=== PATIENT | female | born 1955 | race Caucasian/White ===

== ENCOUNTER → 2017-11-05 07:50 | Outpatient (CLI) | payer OTHER, SELFPAY ==
--- NOTE | 2017-11-05 07:55 | CT_ITS ---
STUDY: CT CHEST WITH CONTRAST REASON FOR EXAM: Female, 62 years old. Follow-up for lung nodule. RADIATION DOSAGE (If Supplied By Facility): CTDIvol = ( 16.47 ) mGy, DLP = ( 733.79 ) mGycm TECHNIQUE: Transaxial imaging was performed following intravenous administration of 100mL ml of Isovue 300 contrast material. Multiplanar coronal and sagittal images were reformatted. Individualized dose optimization techniques were used for this CT. COMPARISON: Comparison is made with prior study dated December 16, 2013. FINDINGS: There is a 1.4 cm solid nodule in the inferior medial aspect of the left lobe of the thyroid. Stable 1.2 cm well-defined solid nodule in the peripheral posterior aspect of the left upper lobe. No new nodular density is seen. Stable mild degree of increased linear markings in the medial aspect of the right middle lobe suggestive of scarring. There is no demonstrated pleural abnormality. There are calcifications of the coronary arteries. There are multiple small lymph nodes within the mediastinum, which are normal in size and morphology most compatible with reactive lymph hyperplasia. Stable calcification of the subcarinal lymph nodes. Normal hilar regions. Normal enhanced pulmonary arteries. Normal aorta arch and descending thoracic aorta. There are mild degenerative changes of the thoracic spine. Small hiatal hernia. 1.9 Shivam well-defined hypodensity in the left adrenal gland suggestive of a small adrenal adenoma. CT/Chest WITH Contrast IMPRESSION: Stable appearance of the nodular density in the posterior aspect of the left upper lobe. Small left adrenal adenoma. Electronically Signed: Lee Gomez MD at 13:45 EST Tel [phone], Service support ,
[2017-11-05 08:16] LABS: CREATININE FINGERSTICK 0.9 mg/dL (0.55-1.02); EGFR FINGERSTICK > 60.0000 mL/min (>60)
== END ==
PROVIDERS: Family Provider Internal Medicine; PCP Internal Medicine; Visit Provider Internal Medicine
DX: R91.1 Solitary pulmonary nodule (principal)
CPT/HCPCS: 71260; Q9967

== ENCOUNTER → 2017-11-26 10:02 | Outpatient (CLI) | payer OTHER, SELFPAY ==
--- NOTE | 2017-11-26 10:05 | US_ITS ---
STUDY: THYROID ULTRASOUND REASON FOR EXAM: Female, 62 years old. Thyroid nodule on CT TECHNIQUE: Transverse and longitudinal ultrasound evaluation of the thyroid was performed with real-time and static stephenson-scale imaging. COMPARISON: Chest CT dated November 05, 2017 FINDINGS: RIGHT LOBE: The right lobe of the thyroid gland measures 4.8 x 1.9 x 1.6 cm. There is a homogeneous echotexture. There is an anechoic mass with a small calcification in the upper pole measuring 5.2 x 4.3 x 5.1 mm. There is another anechoic mass with a small calcification in the lower pole measuring 7.7 x 4.9 x 4.7 mm. LEFT LOBE: The left lobe of the thyroid gland measures 4.3 x 1.5 x 1.7 cm. There is a homogeneous echotexture. There is a nearly anechoic mass in the lower pole measuring 5.0 x 3.9 x 5.2 mm. There is a hypoechoic mass in the midpole posteriorly measuring 6.2 x 6.8 x 6.3 mm. ISTHMUS: The isthmus measures 2.0 mm. The regional lymph nodes are unremarkable. US/Thyroid IMPRESSION: There are a few small nodules in the thyroid without suspicious features. Most of these are cystic. A hypoechoic mass in the midpole of the left lobe measures almost 7 mm in size. A six month follow-up thyroid ultrasound can be obtained to document stability. Electronically Signed: Ana Paula Bernabe MD at 17:39 EST Tel Direct: [phone], Service support ,
== END ==
PROVIDERS: Family Provider Internal Medicine; PCP Internal Medicine; Visit Provider Internal Medicine
DX: E04.2 Nontoxic multinodular goiter (principal)
CPT/HCPCS: 76536

== ENCOUNTER 2018-01-01 08:32 | Emergency (ER) | payer OTHER, SELFPAY ==
[2018-01-01 08:32] VITALS: BP 153/99; PULSE 60; RESP 16; TEMP 36.1; O2SAT 97; BMI 36.9
--- NOTE | 2018-01-01 09:01 | ED.VISSUMM ---
- ER Visit Summary Date of Service: 01/01/18 Chief Complaint: Bleeding History of Present Illness: The patient is a 62 F rectal bleeding that began last night. It has been intermittent. She states it was a small amount of blood at times. Is bright red. She denies any black stool. She is on no blood thinners other than low-dose aspirin. She had this 1 other time without diagnosis. She had a colonoscopy 2-3 years ago she states was unremarkable. She denies any hematemesis. She denies feeling lightheaded or dizzy. She states that the rectal bleeding was a small amount that was a shot glass or less. Physical Examination: Well-appearing older female. Vital signs are stable afebrile. Pulse ox 97% on room air no signs of hypoxia. Coming by her . HEENT exam unremarkable. Neck nontender. Lungs clear to auscultation bilaterally. Heart regular rhythm rate about 60 no murmur. Chest wall nontender. Abdomen soft nontender. Normal bowel sounds no peritoneal signs. Moving all 4 extremities. Neurovascular intact. No edema. Calves nontender. Back exam normal. Neurologically she is awake alert with no focal motor deficits. Test Results: Hemoglobin 14 hematocrit 43 which is her baseline. BMP normal. Normal BUN 22 creatinine 1 and gap of 7. Emergency Department Course and Treatment: Orthostatic vital signs are pending. Patient's repeat exam she is doing well. She has had no further bleeding while in the ER. I did perform a rectal exam. Outside there is no external hemorrhoids. There is no gross blood. She had normal rectal tone. No mass brown loose stool. No melena. Nontender. Treatment Plan: She will be discharged home she is seen Dr. Gonzalez in the past she can follow-up with him for stable rectal bleeding of uncertain etiology. She knows return if heavier bleeding or feeling worse. Disposition: Discharge Impression: Acute rectal bleeding of uncertain etiology This note was generated with [employer] dictation software. It may contain incorrect words, spelling, and punctuation that were not noted in review of the chart prior to signing ED Disposition - Plan for ED Patient: Chief Complaint: GI Bleed Referrals: Arabella Godoy DO [Primary Care Provider] -
[2018-01-01 09:36] LABS: Hematocrit 43.1 % (37-47); Hemoglobin 14.3 g/dl (12.0-15.0); Mean Corp Hgb Conc 33.2 g/gl (32-36); Mean Corpuscular Hgb 30.2 pg (27.0-32.0); Mean Corpuscular Volume 90.9 fL (81-99); Mean Platelet Vol. 9.8 fl (6.2-12.0); Platelet Count 272 K/mm3 (150-450); RBC Distribution Width CV 13.8 % (11.6-14.6); RBC Distribution Width SD 45.6 fl (35.1-43.9); Red Blood Count 4.74 M/mm3 (4.2-5.4); White Blood Count 7.3 K/mm3 (4.4-11.0)
[2018-01-01 09:39] LABS: Scan Indicated on CBC? Y/N NO
[2018-01-01 09:57] LABS: Anion Gap 7 (5-15); BUN 22 mg/dL (7-18); Calcium,Total 9.5 mg/dL (8.5-10.1); Chloride 103 mmol/L (98-107); EST Glomerular Filtration Rate 59 mL/min (>60); Est Glom Filt Rate - Afr Amer 72 mL/min (>60); Estimated Creatinine Clearance 53.21 ml/min; Glucose 101 mg/dL (74-106); Potassium 3.9 mmol/L (3.5-5.1); Sodium Level 140 mmol/L (136-145)
--- NOTE | 2018-01-01 10:59 | ED.DEP ---
ED Disposition - Plan for ED Patient: Disposition: Home or Assisted Living Chief Complaint: GI Bleed Instructions: ED Hematochezia Stable Referrals: Arabella Godoy DO [Primary Care Provider] - As Needed Jeramy Gonzalez MD [STAFF PHYSICIAN] - As soon as possible Additional Instructions: Follow-up with Dr. Jeramy Gonzalez for further evaluation for rectal bleeding. Return to ER feeling worse or a lot heavier bleeding
[2018-01-01 11:05] VITALS: BP 148/72; BP 152/70; BP 153/70; BP 154/76; PULSE 70; PULSE 72; PULSE 75; PULSE 76; RESP 14; O2SAT 98; O2SAT 99
== END 2018-01-01 11:08 | disposition home or self-care (01) ==
PROVIDERS: Emergency Provider Emergency Medicine; Family Provider Internal Medicine; PCP Internal Medicine
DX: K62.5 Hemorrhage of anus and rectum (principal); I10 Essential (primary) hypertension; E78.00 Pure hypercholesterolemia, unspecified; Z79.82 Long term (current) use of aspirin; Z79.899 Other long term (current) drug therapy
CPT/HCPCS: 80048; 85027; 86850; 86900; 99285; A4216

== ENCOUNTER → 2018-03-24 11:59 | Outpatient (CLI) | payer OTHER, SELFPAY ==
--- NOTE | 2018-03-24 12:01 | RAD_ITS ---
STUDY: X-RAY CHEST REASON FOR EXAM: Female, 62 years old. Cough TECHNIQUE: Frontal and lateral views of the chest COMPARISON: CT dated 11/05/2017 FINDINGS: There is airspace opacity in the right lower lobe which is consistent with an infiltrate. The lungs are otherwise clear. There are no pleural effusions. There is no pneumothorax. The heart is normal in size. The visualized osseous structures are within normal limits. RAD/Chest PA and Lateral IMPRESSION: Right lower lobe infiltrate. Electronically Signed: Austin Avila, at 18:03 EDT Tel , Service support ,
== END ==
PROVIDERS: Family Provider Internal Medicine; PCP Internal Medicine; Visit Provider Nurse Practitioner Gerontology
DX: R91.8 Other nonspecific abnormal finding of lung field (principal); R05 Cough
CPT/HCPCS: 71046

== ENCOUNTER → 2018-04-25 10:12 | Outpatient (CLI) | payer MEDICARE, SELFPAY ==
--- NOTE | 2018-04-25 10:15 | RAD_ITS ---
STUDY: X-RAY - RIGHT KNEE REASON FOR EXAM: Female, 63 years old. Pain, decreased range of motion TECHNIQUE: 4 view(s) of the knee. COMPARISON: None. FINDINGS: Normal visualized distal femur. Normal visualized proximal tibia and fibula. Normal proximal tibiofibular articulation. Normal medial femorotibial compartment. Normal lateral femorotibial compartment. Normal patellofemoral articulation. The soft tissue structures are unremarkable. RAD/Knee 4 or More Views IMPRESSION: Normal x-ray examination of the knee. Electronically Signed: Karthik Mares MD at 11:36 EDT , Service support ,
== END ==
PROVIDERS: Family Provider Internal Medicine; PCP Internal Medicine; Visit Provider Internal Medicine
DX: M25.561 Pain in right knee (principal)
CPT/HCPCS: 73564

== ENCOUNTER → 2018-05-06 08:05 | Outpatient (CLI) | payer MEDICARE, SELFPAY ==
--- NOTE | 2018-05-06 08:09 | CT_ITS ---
STUDY: CT ABDOMEN WITH AND WITHOUT CONTRAST REASON FOR EXAM: Female, 63 years old. Follow-up adrenal nodule. RADIATION DOSAGE (If Supplied By Facility): CTDIvol = ( 20.27 ) mGy, DLP = ( 2087.88 ) mGycm TECHNIQUE: Transaxial images were obtained pre and post I.V. administration of 100 ml of Isovue 300, and with oral contrast. Sagittal and coronal images were reconstructed. Individualized dose optimization techniques were used for this CT. COMPARISON: 04/29/2017. FINDINGS: The visualized lung bases are unremarkable. The visualized portions of the heart are within normal limits. Normal liver. Normal gallbladder and extrahepatic biliary system. There are multiple benign calcified granulomata of the spleen. Normal pancreas. Right adrenal gland is normal. Left adrenal gland has a stable isodense 1.6 cm nodule. It has remained stable for over a year now, and probably does not need further evaluation. Normal right kidney. Small cyst in the lower pole of the right kidney. Normal left kidney. Normal visualized stomach. Normal small intestine. Normal colon. There is non-visualization of the appendix. Normal abdominal aorta. Normal inferior vena cava. Normal retroperitoneum. Normal abdominal wall. There are diffuse degenerative changes of the visualized lumbar spine. CT/Abdomen W/WO IV Contrast IMPRESSION: No definite significant abnormalities. Stable probably nonaggressive 1.6 cm nodule of the left adrenal gland. Electronically Signed: Alphonso Stoner MD at 10:20 EDT , Service support ,
--- NOTE | 2018-05-06 08:09 | US_ITS ---
STUDY: THYROID ULTRASOUND REASON FOR EXAM: Female, 63 years old. Follow-up nodules TECHNIQUE: Ultrasound evaluation of the thyroid was performed with real-time and static stephenson-scale imaging. COMPARISON: 11/26/2017. FINDINGS: RIGHT LOBE: The right lobe of the thyroid gland measures 4.8 x 1.8 x 0.8 cm. There is a homogeneous echotexture. 2 small hypoechoic nodules measuring 4 mm and 7 mm, essentially stable LEFT LOBE: The left lobe of the thyroid gland measures 4.5 x 1.3 x 1.5 cm. There is a homogeneous echotexture. There is a 5 mm hypoechoic nodule. ISTHMUS: The isthmus measures 3 mm. . The regional lymph nodes are normal. US/Thyroid IMPRESSION: Essentially stable subcentimeter hypoechoic nodules. In general these do not need further evaluation. Electronically Signed: Alphonso Stoner MD at 11:30 EDT , Service support ,
[2018-05-06 08:21] LABS: CREATININE FINGERSTICK 0.9 mg/dL (0.55-1.02)
== END ==
PROVIDERS: Family Provider Internal Medicine; PCP Internal Medicine; Visit Provider Internal Medicine
DX: E04.1 Nontoxic single thyroid nodule (principal); E27.9 Disorder of adrenal gland, unspecified
CPT/HCPCS: 74170; 76536; Q9967

== ENCOUNTER 2018-11-14 09:03 | Emergency (ER) | payer MEDICARE, SELFPAY ==
[2018-11-14 09:05] VITALS: BP 159/82; PULSE 64; RESP 18; TEMP 36.4; O2SAT 98; BMI 37.9
--- NOTE | 2018-11-14 09:18 | RAD_ITS ---
STUDY: X-RAY - RIGHT KNEE REASON FOR EXAM: Posterior pain, knee injury last night. TECHNIQUE: 4 view(s) of the knee. COMPARISON: Radiographs 04/25/2018. FINDINGS: Normal visualized distal femur. Normal visualized proximal tibia and fibula. Normal proximal tibiofibular articulation. Normal medial femorotibial compartment. Normal lateral femorotibial compartment. Normal patellofemoral articulation. The soft tissue structures are unremarkable. RAD/Knee 4 or More Views IMPRESSION: Normal x-ray examination of the right knee. Electronically Signed: Domingo Alonso MD at 10:50 EST Tel , Service support ,
--- NOTE | 2018-11-14 10:48 | ED.VISSUMM ---
- ER Visit Summary Date of Service: 11/14/18 Chief Complaint: [Injury right knee] History of Present Illness: The patient is a 63 F [presents the emergency department with complaint of injury to the right knee that occurred last evening. Patient states that she was stepping out of a van when she felt a snap in her right knee. Patient did not actually fall. Patient complains of pain with walking but seems to be able to bear weight when she has her knee completely extended and is able to walk on it. Patient denies any weakness in the extremity. Patient denies recent travel or surgery otherwise.] Physical Examination: [HEENT-PERRLA, EOMI. Cranial nerves II through XII grossly intact. TMs clear. Mucous membranes moist. No adenopathy. Cardiovascular-regular rate and rhythm without murmur or ectopy Lungs-clear to auscultation, chest wall stable without crepitus or subcu emphysema Abdomen-normoactive bowel sounds, soft, nontender, no rebound or rigidity, no peritoneal signs. Extremities-intact ?4, normal range of motion, normal pulses. Right knee-patient has no effusion. There is no ecchymosis or bruising. She is neurovascular intact distally. Ligamentously stable. Patient does have pain with flexion of the knee.] Test Results: [X-rays of the right knee obtained showed no fractures and nothing acute.] Emergency Department Course and Treatment: [Patient was given a knee immobilizer and crutches.] Treatment Plan: [Patient will be referred to orthopedics on-call and will be given a knee immobilizer and crutches as well as a prescription for [place] for pain.] Disposition: [Discharged home in stable condition.] Impression: [Right knee sprain-possible internal derangement] This note was generated with [employer] dictation software. It may contain incorrect words, spelling, and punctuation that were not noted in review of the chart prior to signing ED Disposition - Plan for ED Patient: Referrals: Arabella Godoy DO [Primary Care Provider] -
--- NOTE | 2018-11-14 10:50 | ED.DEP ---
ED Disposition - Plan for ED Patient: Instructions: ED Meniscal Injury Knee Poss Prescriptions: Hydrocodone Bitart/Apap 5-325 [[place] 5MG-325MG] 1 tab PO Q4H PRN PRN 2 Days #10 tab PRN Reason: Pain Referrals: Arabella Godoy DO [Primary Care Provider] - Earnest Chambers DO [STAFF PHYSICIAN] - 3-5 Days
[2018-11-14 11:19] VITALS: PULSE 67; RESP 17; O2SAT 97
== END 2018-11-14 11:20 | disposition home or self-care (01) ==
PROVIDERS: Emergency Provider Emergency Medicine; Family Provider Internal Medicine; PCP Internal Medicine
DX: S83.91XA Sprain of unspecified site of right knee, initial encounter (principal); X58.XXXA Exposure to other specified factors, initial encounter; Y93.89 Activity, other specified; Y92.9 Unspecified place or not applicable; I10 Essential (primary) hypertension; I34.1 Nonrheumatic mitral (valve) prolapse; Z79.82 Long term (current) use of aspirin; Z79.899 Other long term (current) drug therapy
CPT/HCPCS: 73564; 99283

== ENCOUNTER → 2019-04-01 09:12 | Outpatient (CLI) | payer MEDICARE, SELFPAY ==
[2019-01-07 10:36] VITALS: BMI 37.9
--- NOTE | 2019-04-01 09:15 | BI_ITS ---
MAMMOGRAPHY - BILATERAL SCREENING REASON FOR EXAM: Female, 64 years old. Routine annual screening examination. PERTINENT HISTORY: Non-contributory. TECHNIQUE: Digital bilateral breast libra (3D mammographic acquisition) in the CC and MLO projections. 2-D mediolateral oblique (MLO) and craniocaudad (CC) views of both breasts were obtained. CAD: Full Field Digital Mammography with Computer Added Detection was performed. COMPARISON: Comparison is made with prior study dated July 11, 2016 and July 07, 2015. FINDINGS: Breast Composition: There are scattered areas of fibroglandular density. There are no dominant masses or suspicious calcifications. Stable small bilateral benign appearing axillary lymph nodes. No other significant abnormalities are identified. There has been no significant change since the prior study. BI/SCREEN MAMM (CAD) W/LIBRA BILAT IMPRESSION: Stable bilateral screening mammogram. Yearly follow-up mammogram recommended. (A) ASSESSMENT CATEGORY: BIRADS Category 2: Benign. A letter regarding these results will be sent to the patient by the facility within 30 days. Approximately 10% of breast cancers are not detected by mammography. A normal mammogram should not delay biopsy of a clinically suspicious abnormality. [id number] Electronically Signed: Lee Gomez, at 13:51 EDT , Service support ,
--- NOTE | 2019-04-01 09:25 | BD_ITS ---
STUDY: DUAL ENERGY X-RAY ABSORPTIOMETRY / DXA REASON FOR EXAM: Female, 63 years old. The patient is postmenopausal. Loss of height. TECHNIQUE: Bone Mineral Density (BMD) measurements of lumbar spine and bilateral hips were obtained. COMPARISON: Comparison is made with prior study dated July 11, 2016. FINDINGS: Lumbar Spine (L1-L4): g/cm2 (0.937) / T-score (-2.0) / Z-score (-0.4) Findings are suggestive of osteopenia with a moderate fracture risk. Left Femur Total: g/cm2 (0.890) / T-score (-0.9) / Z-score (0.3) Left Femoral Neck: g/cm2 (0.896) / T-score (-1.0) / Z-score (0.5) Right Femur Total: g/cm2 (0.835) / T-score (-1.4) / Z-score (-0.1) Right Femoral Neck: g/cm2 (0.893) / T-score (-1.0) / Z-score (0.5) The T-Scores on the most recent prior examination were: Lumbar Spine (L1-L4): There has been worsening of bone density since the previous examination. Left Femur Total: which represents a worsening of 1.5%. Right Femur Total: which represents a worsening of 1.1%. BD/Dexa Bone Density Study IMPRESSION: The patient is considered osteopenic as outlined below according to World Lucio Organization (WHO) criteria with a moderate fracture risk. There has been worsening of bone density since the previous examination. Reference Information: The T-score is the number of standard deviations above or below the standard which is normal for young adults at their peak bone mineral density. The World Health Organization (WHO) interprets the T-scores as follows: Above -1 Normal bone density Between -1 and -2.5 Osteopenia Equal to / or below -2.5 Osteoporosis As a practical clinical guideline, osteopenia may be graded as follows: Mild -1 through -1.5 Moderate -1.6 through -2.0 Severe -2.1 through -2.4 The Z-score is the number of standard deviations above or below age-matched controls. A Z-score of less than -1.5 would be considered abnormal. References: 1. NIH Osteoporosis and Related Bone Diseases http://www.osteo.org 2. International Society for Clinical Densitometry http://www.iscd.org 3. National Osteoporosis Foundation http://www.nof.org Electronically Signed: Lee Gomez, at 13:55 EDT , Service support ,
== END ==
PROVIDERS: Family Provider Internal Medicine; PCP Internal Medicine; Referring Provider Internal Medicine; Visit Provider Internal Medicine
DX: Z78.0 Asymptomatic menopausal state (principal); Z12.31 Encounter for screening mammogram for malignant neoplasm of breast
CPT/HCPCS: 77063; 77067; 77080

== ENCOUNTER → 2020-04-04 08:17 | Outpatient (CLI) | payer MEDICARE, SELFPAY ==
[2020-03-07 14:29] VITALS: BMI 38.2
--- NOTE | 2020-04-04 08:19 | BI_ITS ---
MAMMOGRAPHY - BILATERAL SCREENING REASON FOR EXAM: Female, 64 years old. Routine annual screening examination. PERTINENT HISTORY: Non-contributory. TECHNIQUE: Digital bilateral breast libra (3D mammographic acquisition) in the CC and MLO projections. 2-D mediolateral oblique (MLO) and craniocaudad (CC) views of both breasts were obtained. CAD: Full Field Digital Mammography with Computer Added Detection was performed. COMPARISON: Comparison is made with prior examination dated April 01, 2019 and July 11, 2016. FINDINGS: Breast Composition: There are scattered areas of fibroglandular density. There are no dominant masses or suspicious calcifications. Stable small benign-appearing bilateral axillary lymph nodes. No other significant abnormalities are identified. There has been no significant change since the prior study. BI/SCREEN MAMM (CAD) W/LIBRA BILAT IMPRESSION: Stable bilateral screening mammogram. Yearly follow-up mammogram recommended. (A) ASSESSMENT CATEGORY: BIRADS Category 2: Benign. A letter regarding these results will be sent to the patient by the facility within 30 days. Approximately 10% of breast cancers are not detected by mammography. A normal mammogram should not delay biopsy of a clinically suspicious abnormality. [id number] Electronically Signed: Lee Gomez, at 9:56 EDT , Service support ,
== END ==
PROVIDERS: PCP Internal Medicine; Referring Provider Internal Medicine; Visit Provider Internal Medicine
DX: Z12.31 Encounter for screening mammogram for malignant neoplasm of breast (principal)
CPT/HCPCS: 77063; 77067

== ENCOUNTER → 2021-05-04 12:58 | Outpatient (CLI) | payer MEDICARE, SELFPAY ==
[2021-03-24 10:24] VITALS: BMI 38.0
--- NOTE | 2021-05-04 13:01 | BI_ITS ---
MAMMOGRAPHY - BILATERAL SCREENING REASON FOR EXAM: Female, 66 years old. Routine annual screening examination. PERTINENT HISTORY: Screening TECHNIQUE: Digital bilateral breast libra (3D mammographic acquisition) in the CC and MLO projections. 2-D mediolateral oblique (MLO) and craniocaudad (CC) views of both breasts were obtained. CAD: Full Field Digital Mammography with Computer Added Detection was performed. COMPARISON: 04/04/2020 FINDINGS: Breast Composition: Scattered There are no dominant masses or suspicious calcifications. No other significant abnormalities are identified. BI/SCRN MAMM (CAD)W/LIBRA BILAT IMPRESSION: Stable bilateral screening mammogram. Yearly follow-up mammogram recommended. (A) ASSESSMENT CATEGORY: BIRADS Category 1: Negative. A letter regarding these results will be sent to the patient by the facility within 30 days. Approximately 10% of breast cancers are not detected by mammography. A normal mammogram should not delay biopsy of a clinically suspicious abnormality. [id number] Electronically Signed: Devin Montiel DO at 12:34 EDT Tel , Service support ,
--- NOTE | 2021-05-04 13:39 | BD_ITS ---
STUDY: DUAL ENERGY X-RAY ABSORPTIOMETRY / DXA REASON FOR EXAM: Female, 66 years old. [id number]. The patient is postmenopausal. TECHNIQUE: Bone Mineral Density (BMD) measurements of lumbar spine and bilateral hips were obtained. COMPARISON: Comparison is made with prior examination dated 04/01/2019. FINDINGS: Lumbar Spine (L1-L4): g/cm2 (0.800) / T-score (-2.2) / Z-score (-0.3) Findings are suggestive of osteopenia with a high fracture risk. Left Femur Total: g/cm2 (0.848) / T-score (-0.8) / Z-score (0.6) Left Femoral Neck: g/cm2 (0.759) / T-score (-0.8) / Z-score (0.9) Right Femur Total: g/cm2 (0.807) / T-score (-1.1) / Z-score (0.3) Right Femoral Neck: g/cm2 (0.717) / T-score (-1.2) / Z-score (0.5) The T-Scores on the most recent prior examination were: Lumbar Spine (L1-L4): There has been worsening of bone density since the previous examination. Left Femur Total: which represents an improvement of 2.5%. Right Femur Total: which represents an improvement of 4.3%. BD/Dexa Bone Density Study IMPRESSION: The patient is considered osteopenic as outlined below according to World [employer] Organization (WHO) criteria with a low fracture risk. There has been improvement of bone density since the previous examination. Reference Information: The T-score is the number of standard deviations above or below the standard which is normal for young adults at their peak bone mineral density. The World Health Organization (WHO) interprets the T-scores as follows: Above -1 Normal bone density Between -1 and -2.5 Osteopenia Equal to / or below -2.5 Osteoporosis As a practical clinical guideline, osteopenia may be graded as follows: Mild -1 through -1.5 Moderate -1.6 through -2.0 Severe -2.1 through -2.4 The Z-score is the number of standard deviations above or below age-matched controls. A Z-score of less than -1.5 would be considered abnormal. References: 1. NIH Osteoporosis and Related Bone Diseases www osteo.org 2. International Society for Clinical Densitometry www iscd.org 3. National Osteoporosis Foundation www nof.org Electronically Signed: Lee Gomez MD at 9:07 EDT , Service support ,
== END ==
PROVIDERS: PCP Internal Medicine; Visit Provider Internal Medicine
DX: Z78.0 Asymptomatic menopausal state (principal); Z12.31 Encounter for screening mammogram for malignant neoplasm of breast
CPT/HCPCS: 77063; 77067; 77080

== ENCOUNTER 2021-12-14 12:08 | Outpatient (CLI) | payer MEDICARE, SELFPAY ==
[2021-12-14 12:45] LABS: Absolute Lymphocyte Count 2.21 X10^3/uL (0.83-4.51); Absolute Neutrophil Count 3.7 X10^3/uL (2.0-7.7); Basophil# 0.03 X10^3/uL; Basophil% 0.5 % (0-1); Eosinophils% 1.5 % (0-5); Hematocrit 43.6 % (37-47); Hemoglobin 14.3 g/dL (12.0-15.0); Lymphocyte # 2.21 X10^3/ul (0.83-4.51); Lymphocyte % 33.7 % (19-41); Mean Corp Hgb Conc 32.8 g/dL (32-36); Mean Corpuscular Hgb 29.2 pg (27.0-32.0); Mean Platelet Vol. 10.8 fl (6.2-12.0); Monocyte# 0.51 X10^3/uL; Monocyte% 7.8 % (0-10); NRBC Flagged by Analyzer 0 % (0-5); Neutrophil % 56.3 % (47-70); Platelet Count 276 K/mm3 (150-450); RBC Distribution Width CV 13.8 % (11.6-14.6); RBC Distribution Width SD 45.1 fl (35.1-43.9); White Blood Count 6.6 K/mm3 (4.4-11.0)
[2021-12-14 13:13] LABS: ALB/GLOB Ratio 1.1 RATIO (0.9-2.4); AST(SGOT) 18 U/L (15-37); Alanine Aminotransfer ALT/SGPT 31 U/L (13-56); Albumin, Serum 3.9 g/dL (3.2-5.0); Alkaline Phosphatase 111 U/L (45-117); Anion Gap 2 (5-15); BUN 19 mg/dL (7-18); BUN/Creat Ratio 21.6 RATIO (10-20); Calcium,Total 9.5 mg/dL (8.5-10.1); Chloride 104 mmol/L (98-107); Creatinine, Serum 0.88 mg/dL (0.55-1.02); EST Glomerular Filtration Rate 68 mL/min (>60); Est Glom Filt Rate - Afr Amer 82 mL/min (>60); Globulin 3.4 g/dL (2.2-4.2); Glucose 99 mg/dL (74-106); Potassium 3.7 mmol/L (3.5-5.1); Protein, Total 7.3 g/dL (6.4-8.2); Sodium Level 139 mmol/L (136-145); Troponin-I HS 64 pg/mL (3.0-54.0)
== END 2021-12-14 23:59 | disposition home or self-care (01) ==
PROVIDERS: PCP Internal Medicine; Visit Provider Internal Medicine
DX: R07.89 Other chest pain (principal)
CPT/HCPCS: 80053; 84484; 85025

== ENCOUNTER 2021-12-14 14:28 | Observation (INO) | payer MEDICARE, SELFPAY ==
[2021-12-14 14:28] VITALS: BP 175/89; PULSE 73; RESP 16; TEMP 36.8; O2SAT 97; BMI 38.4
--- NOTE | 2021-12-14 14:38 | RAD_ITS ---
STUDY: X-RAY CHEST REASON FOR EXAM: Female, 66 years old. chest pain TECHNIQUE: AP COMPARISON: 03/24/2018 FINDINGS: EKG leads project over the chest. The lungs are clear and expanded. There is no demonstrated pleural abnormality. Normal size heart. Normal mediastinum and mary. Normal visualized pulmonary arteries. Normal visualized aortic arch and descending thoracic aorta. Normal visualized thoracic spine. Normal visualized ribs, clavicles, and shoulders. There is no demonstrated abnormality of the visualized soft tissue structures of the upper abdomen. RAD/Chest 1 View (Portable) IMPRESSION: Nonacute portable x-ray examination of the chest. Electronically Signed: Spencer Foster MD ([place]) at 15:26 EDT ,
--- NOTE | 2021-12-14 14:38 | EKG12_ITS ---
Test Reason : CP Blood Pressure : / mmHG Vent. Rate : 068 BPM Atrial Rate : 068 BPM P-R Int : 148 ms QRS Dur : 080 ms QT Int : 392 ms P-R-T Axes : 062 -08 019 degrees QTc Int : 416 ms Normal sinus rhythm Normal ECG When compared with ECG of 27-DEC-2006 07:28, MANUAL COMPARISON REQUIRED, DATA IS UNCONFIRMED Confirmed by GERALD JOHNS, MARTITA ([id number]), business editor KORINA RUSSELL ([id number]) on 12/19/2021 10:44:03 AM Referred By: TISHA/BECKY Confirmed By:MARTITA DUARTE MD
--- NOTE | 2021-12-14 15:05 | EDS_ITS ---
HPI <GLORIA Bedolla - Last Filed: 12/14/21 15:57> History of Present Illness Chief Complaint: Chest Pain Narrative Narrative: 71-year-old female with PMH of HTN, HLD, GERD, prediabetes presents with chest pain. Last night around 8 PM she laid down to go to sleep and after about 10 minutes of lying down she got chest discomfort. It was a squeezing sensation around both sides of her chest. She got up and walked and belched a few times and felt better. The entire episode lasted 5 to 10 minutes. Today she had similar pain but it is not as bad but it did radiate to her left shoulder. No shortness of breath, nausea, vomiting, diaphoresis, lightheaded or dizziness. She does report being under a lot of recent stress as her grandson within the last 2 weeks. She denies cardiac history. She states she seen Dr. Arenas for a remote chest pain work-up around 2016. PFS <GLORIA Bedolla - Last Filed: 12/14/21 15:57> [facility] Medical History Angina pectoris Atherosclerotic heart disease of [place] coronary artery without angina pectoris Dyspnea Essential hypertension Hyperlipidemia Hypertension Mitral valve disorder Mixed hyperlipidemia Precordial chest pain Snoring Home Medications metoprolol tartrate 25 mg PO DAILY 05/18/14 [History Last Taken 12/31/17] omeprazole 20 mg PO BID 09/20/14 [History Last Taken 12/31/17] aspirin 81 mg PO DAILY 04/27/17 [History Last Taken 12/31/17] coenzyme Q10 100 mg PO DAILY 04/27/17 [History Last Taken 12/31/17] atorvastatin 20 mg tablet 20 mg PO QHS 03/24/21 [History Last Taken Unknown] calcium carbonate 600 mg calcium (1,500 mg) tablet 600 mg PO BID 03/24/21 [History Last Taken Unknown] cholecalciferol (vitamin D3) 125 mcg (5,000 unit) capsule 125 mcg PO DAILY 03/24/21 [History Last Taken Unknown] lisinopril 20 mg-hydrochlorothiazide 12.5 mg tablet 1 tab PO DAILY 03/24/21 [History Last Taken Unknown] Allergy/AdvReac Type Severity Reaction Status Date / Time No Known Allergies Allergy Verified 12/14/21 14:30 Family History Mother Hypertension Sister Cancer Lung cancer Sister CVA (cerebral vascular accident) Surgical History History of appendectomy trigger finger release Social History Smoking Status: Never smoker alcohol intake: never substance use type: does not use caffeine: Yes Type: coffee what type of physical activity do you participate in: none seatbelt use: always do you feel safe at home: Yes ROS <GLORIA Bedolla - Last Filed: 12/14/21 15:57> ROS ED ROS Narrative Constitutional: Negative for fever, chills, malaise. Eyes: Negative for visual change. ENT: Negative for sore throat, ear pain, rhinorrhea. CVS: Positive for chest pain. Negative for palpitations, syncope. Respiratory: Negative for shortness of breath, cough, orthopnea. GI: Negative for abdominal pain, nausea, vomiting, diarrhea, constipation, melena, hematochezia. : Negative for dysuria, hematuria or frequency. Neuro: Negative for headache, motor/sensory dysfunction. Skin: Negative for rash, abscess, or wound. Musc: Negative for joint pain, swelling, trauma. Heme: Negative for easy bruising, bleeding, lymphadenopathy. EXAM <GLORIA Bedolla - Last Filed: 12/14/21 15:57> Physical Exam Narrative Exam Narrative: CONST: Patient sitting in no acute distress. EYES: Normal inspection. ENT: Normal inspection, moist mucous membranes. NECK: Normal inspection. RESP: No respiratory distress, CTAB. CVS: Regular rate and rhythm, no murmur, no gallop. ABD: Soft and nontender, no guarding or rebound, nondistended. SKIN: Color normal, no rash, warm, dry, intact. EXTREMITIES: Normal appearance, no pedal edema. NEURO: Oriented x4. PSYCH: Normal affect. Const Vital Signs: 12/14/21 14:28 12/14/21 14:59 Temperature 98.2 F Temperature Source Temporal Pulse Rate 73 Respiratory Rate 16 Blood Pressure 175/89 H Blood Pressure Mean 117 Pulse Ox 97 Oxygen Delivery Method Room Air Room Air <Dr. Saúl Up, - Last Filed: 12/14/21 16:04> Physical Exam Const Vital Signs: 12/14/21 14:28 12/14/21 14:59 Temperature 98.2 F Temperature Source Temporal Pulse Rate 73 Respiratory Rate 16 Blood Pressure 175/89 H Blood Pressure Mean 117 Pulse Ox 97 Oxygen Delivery Method Room Air Room Air [facility] <GLORIA Bedolla - Last Filed: 12/14/21 15:57> [facility] Narrative Medical decision making narrative: Patient presents with chest pain. She appears well nontoxic. Vital signs within normal limits. Medical exam is unremarkable. EKG is normal sinus rhythm with no acute ischemic changes. Troponin is 64, delta 62. Chest x-ray shows no acute process. She was initially treated with full dose aspirin and reports minimal pain while in the ED. Her heart score is 5-6. Records show that she has not had stress testing with cardiology since 2017. For this reason she will require admission for cardiac work-up. Case was discussed with the hospitalist and she was admitted in stable condition to PCU obs. Lab Data Labs: Laboratory Results - last 24 hr 12/14/21 12/14/21 12/14/21 14:53 14:53 14:53 WBC 7.5 RBC 4.98 Hgb 14.9 Hct 44.3 MCV 89.0 MCH 29.9 MCHC 33.6 RDW Std Deviation 44.8 H RDW Coeff of [place]equ[place] 13.8 Plt Count 288 MPV 10.1 Immature Gran % (Auto) 0.100 Neut % (Auto) 63.3 Lymph % (Auto) 24.4 Webster % (Auto) 9.9 Eos % (Auto) 2.0 Baso % (Auto) 0.3 Absolute Neuts (auto) 4.7 Absolute Lymphs (auto) 1.83 Nucleated RBC % 0 PT 12.2 INR 1.0 Sodium 140 Potassium 3.5 Chloride 106 Carbon Dioxide 29.0 Anion Gap 5 BUN 21 H Creatinine 1.03 H Estim Creat Clear Calc 48.94 Est GFR (MDRD) Af Amer 68 Est GFR (MDRD) Non-Af 57 L BUN/Creatinine Ratio 20.4 H Glucose 110 H Calcium 9.7 Troponin I High Sens 62 H Radiography Chest X-Ray - ED: 1 View, Read by ED Physician, Normal, Heart, Lungs, Mediastinum, Bony Structures and No Acute Disease Diagnostic Testing: Clinical Impression(s) from Imaging Studies Chest X-Ray 12/14/21 14:38 IMPRESSION: Nonacute portable x-ray examination of the chest. Electronically Signed: Spencer Foster MD (Brooks) at 15:26 EDT , EKG Initial EKG: Attestation: I personally reviewed and interpreted this EKG as follows: Interpretation: Sinus Rhythm and No Acute Injury Pattern <Dr. Saúl Up, DO - Last Filed: 12/14/21 16:04> [facility] MDM Narrative Medical decision making narrative: Patient was seen with me. I did a [id number] examination with the patient. I agree with the history and physical examination. Patient presents with chest pain that began last night. Patient states it felt like a squeezing sensation over her lower chest. Patient denies any radiation of the pain. Patient denies any shortness of breath. Patient denies any nausea or vomiting. Patient denies any fevers or chills. Patient denies any diaphoresis. Patient states nothing makes it better nothing makes it worse. Vital signs are stable. Patient is afebrile. Patient is in no acute distress. Oral mucosa is pink and moist. Neck is supple. Trachea is midline. There is no JVD. Heart was regular rate and rhythm. Lungs are clear and equal bilaterally. Abdomen is soft. Bowel sounds are normal. There is no tenderness. Cranial nerves II through XII are intact. There are no focal motor or sensory deficits noted. EKG was obtained. There is normal sinus rhythm. There are no acute ST or T wave changes. CBC was within normal limits. PT was INR was within normal limits. Basic metabolic profile showed a BUN of 21 and creatinine of 1.03. These are consistent with prior results. High-sensitivity troponin was 62. High-sensitivity troponin earlier today was 64. Case was discussed with the hospitalist. He will admit the patient for observation for further evaluation. Patient and family understood and were agreeable with the plan. All questions were answered. Lab Data Attestation: I reviewed the patient's lab results. Labs: Laboratory Results - last 24 hr 12/14/21 12/14/21 12/14/21 14:53 14:53 14:53 WBC 7.5 RBC 4.98 Hgb 14.9 Hct 44.3 MCV 89.0 MCH 29.9 MCHC 33.6 RDW Std Deviation 44.8 H RDW Coeff of [place]equila 13.8 Plt Count 288 MPV 10.1 Immature Gran % (Auto) 0.100 Neut % (Auto) 63.3 Lymph % (Auto) 24.4 Webster % (Auto) 9.9 Eos % (Auto) 2.0 Baso % (Auto) 0.3 Absolute Neuts (auto) 4.7 Absolute Lymphs (auto) 1.83 Nucleated RBC % 0 PT 12.2 INR 1.0 Sodium 140 Potassium 3.5 Chloride 106 Carbon Dioxide 29.0 Anion Gap 5 BUN 21 H Creatinine 1.03 H Estim Creat Clear Calc 48.94 Est GFR (MDRD) Af Amer 68 Est GFR (MDRD) Non-Af 57 L BUN/Creatinine Ratio 20.4 H Glucose 110 H Calcium 9.7 Troponin I High Sens 62 H Radiography Chest X-Ray - ED: 1 View, Read by ED Physician, Read by Radiologist and No Acute Disease Diagnostic Testing: Clinical Impression(s) from Imaging Studies Chest X-Ray 12/14/21 14:38 IMPRESSION: Nonacute portable x-ray examination of the chest. Electronically Signed: Spencer Foster MD (Brooks) at 15:26 EDT Reading Location ID and State: [facility] / [place] , Service support , Discharge Plan Triage Chief Complaint: Chest Pain ED Provider: Tran Garcia Dx/Rx/DC Orders Prescriptions: No Action atorvastatin 20 mg tablet 20 mg PO QHS RF: 0 lisinopril-hydrochlorothiazide 20-12.5 mg tablet 1 tab PO DAILY RF: 0 calcium carbonate 600 mg calcium (1,500 mg) tablet 600 mg PO BID RF: 0 cholecalciferol (vitamin D3) 125 mcg (5,000 unit) capsule 125 mcg PO DAILY RF: 0 metoprolol tartrate 25 MG tablet 25 mg PO DAILY RF: 0 omeprazole 20 MG capsule 20 mg PO BID RF: 0 aspirin 81 MG tablet,delayed release (DR/EC) 81 mg PO DAILY RF: 0 coenzyme Q10 100 MG capsule 100 mg PO DAILY RF: 0 Primary Care Provider: Arabella Godoy
[2021-12-14 15:06] LABS: Absolute Lymphocyte Count 1.83 X10^3/uL (0.83-4.51); Absolute Neutrophil Count 4.7 X10^3/uL (2.0-7.7); Basophil# 0.02 X10^3/uL; Basophil% 0.3 % (0-1); Eosinophil# 0.15 X10^3/uL; Hematocrit 44.3 % (37-47); Hemoglobin 14.9 g/dL (12.0-15.0); Lymphocyte # 1.83 X10^3/ul (0.83-4.51); Lymphocyte % 24.4 % (19-41); Mean Corp Hgb Conc 33.6 g/dL (32-36); Mean Corpuscular Hgb 29.9 pg (27.0-32.0); Mean Platelet Vol. 10.1 fl (6.2-12.0); Monocyte# 0.74 X10^3/uL; Monocyte% 9.9 % (0-10); NRBC Flagged by Analyzer 0 % (0-5); Neutrophil # 4.74 X10^3/uL (2.7-7.7); Neutrophil % 63.3 % (47-70); Platelet Count 288 K/mm3 (150-450); RBC Distribution Width CV 13.8 % (11.6-14.6); RBC Distribution Width SD 44.8 fl (35.1-43.9); Red Blood Count 4.98 M/mm3 (4.2-5.4); White Blood Count 7.5 K/mm3 (4.4-11.0)
[2021-12-14 15:28] LABS: Anion Gap 5 (5-15); BUN 21 mg/dL (7-18); BUN/Creat Ratio 20.4 RATIO (10-20); Calcium,Total 9.7 mg/dL (8.5-10.1); Chloride 106 mmol/L (98-107); Creatinine, Serum 1.03 mg/dL (0.55-1.02); EST Glomerular Filtration Rate 57 mL/min (>60); Est Glom Filt Rate - Afr Amer 68 mL/min (>60); Estimated Creatinine Clearance 48.94 ml/min; Glucose 110 mg/dL (74-106); Potassium 3.5 mmol/L (3.5-5.1); Sodium Level 140 mmol/L (136-145); Troponin-I HS 62 pg/mL (3.0-54.0)
[2021-12-14 15:42] LABS: Prothrombin Time (Protime)PT. 12.2 SECONDS (11.7-14.9)
--- NOTE | 2021-12-14 16:19 | PCM.HP.STD ---
HPI - General General Date of Admission: 12/14/21 Date of Service: 12/14/21 Chief Complaint: Chest pain HPI Narrative OLVIN HAGAN, is a 66 F who presents to the emergency room at [facility] with complaints of intermittent chest pain since yesterday. Patient states that the discomfort is like a tightness, there is some radiation into her left shoulder, she also has an odd sensation in her left arm that she cannot describe. When the patient had an episode yesterday, it lasted for several minutes and it came on at rest and went away spontaneously. Patient had a repeat episode today and her chest pain continues at the time of my examination at a 2/10 in intensity. She states she has been under a lot of social pressure in her family and she wonders whether this could be playing a part. Patient has a past history of nonocclusive coronary artery disease, she follows with Dr. Arenas yearly. Labs were obtained in the emergency room, CBC was unremarkable, chemistry profile was abnormal for creatinine 1.03, BUN was 21, and troponin was 62. Patient had an outpatient troponin done today which was 64. EKG showed normal sinus rhythm without evidence of ischemic changes, chest x-ray was unremarkable. Patient will be placed in observation status on PCU, echocardiogram will be obtained, cardiac enzymes will be cycled, if they remain in the low range of abnormal, I feel the patient could undergo an exercise stress test tomorrow. [facility] Medical History Angina pectoris Atherosclerotic heart disease of [place] coronary artery without angina pectoris Dyspnea Essential hypertension Hyperlipidemia Hypertension Mitral valve disorder Mixed hyperlipidemia Precordial chest pain Snoring Home Medications metoprolol tartrate 25 mg PO DAILY 05/18/14 [History Last Taken 12/13/21] aspirin 81 mg PO DAILY 04/27/17 [History Last Taken 12/13/21] atorvastatin 20 mg tablet 20 mg PO QHS 03/24/21 [History Last Taken 12/13/21] calcium carbonate 600 mg calcium (1,500 mg) tablet 600 mg PO BID 03/24/21 [History Last Taken 12/13/21] cholecalciferol (vitamin D3) 125 mcg (5,000 unit) capsule 125 mcg PO DAILY 03/24/21 [History Last Taken 12/13/21] lisinopril 20 mg-hydrochlorothiazide 12.5 mg tablet 1 tab PO DAILY 03/24/21 [History Last Taken 12/13/21] coQ10 (ubiquinol) 200 mg PO DAILY 12/14/21 [History Last Taken 12/13/21] omeprazole 40 mg PO DAILY 12/14/21 [History Last Taken 12/13/21] Allergy/AdvReac Type Severity Reaction Status Date / Time No Known Allergies Allergy Verified 12/14/21 14:30 Family History Mother Hypertension Sister Cancer Lung cancer Sister CVA (cerebral vascular accident) Surgical History History of appendectomy trigger finger release Social History Smoking Status: Never smoker alcohol intake: never substance use type: does not use caffeine: Yes Type: coffee what type of physical activity do you participate in: none seatbelt use: always do you feel safe at home: Yes ROS Constitutional Constitutional: Denies anorexia, change in weight, fever(s), night sweats or weakness Eyes Eyes: Denies blurry vision, change in vision, discharge from eye(s) or eye pain Cardiovascular Cardiovascular: Reports chest pain; Denies claudication, dyspnea on exertion, edema or palpitations Respiratory/Chest Respiratory/Chest: Denies cough, dyspnea, excessive phlegm production, hemoptysis, productive cough, shortness of breath at rest or shortness of breath with exertion Gastrointestinal Gastrointestinal: Denies abdominal pain, constipation, diarrhea, hematemesis, hematochezia, melena, nausea or vomiting Genitourinary Genitourinary: Denies dysuria, hematuria, urinary frequency, urinary hesitancy, urinary incontinence or urinary urgency Musculoskeletal Musculoskeletal: Denies back pain, joint pain, joint stiffness, joint swelling, myalgias or neck pain Neurologic Neurologic: Denies abnormal gait, abnormal speech, dizziness, focal weakness, headache(s), loss of vision, numbness, other visual disturbances, paresthesias, syncope or tingling Psychiatric Psychiatric: Denies anxiety, cognitive impairment, depression, irritability, mood swings or suicidal ideation Endocrine Endocrinology: Denies change in body appearance, cold intolerance, excessive sweating, heat intolerance, polydipsia or polyuria Hematologic/Lymphatic Hematologic/Lymphatic: Denies none, anemia, easy bleeding, easy bruising or lymphadenopathy Allergic/Immunologic Allergic/Immunologic: Denies rhinitis, urticaria, eczemia or asthma Vital Signs Vital Signs Vital Signs: 12/14/21 14:28 12/14/21 14:59 Temperature 98.2 F Temperature Source Temporal Pulse Rate 73 Respiratory Rate 16 Blood Pressure 175/89 H Blood Pressure Mean 117 Pulse Ox 97 Oxygen Delivery Method Room Air Room Air Weight Weight: 107.955 kg Body Mass Index (BMI) 38.4 Physical Exam Const alert, oriented x3, no apparent distress and healthy appearing General Appearance: cooperative, well kempt and well developed Orientation / Consciousness: awake, oriented to person, oriented to place and oriented to time HEENT normocephalic, head/scalp atraumatic, hearing grossly normal bilaterally and moist oral mucous membranes Eyes PERRL, EOMs intact bilaterally and conjunctivae normal Neck nuchal rigidity, supple, no JVD, thyroid normal and no carotid bruits General: trachea midline Resp normal respiratory effort, no retractions, no use of accessory muscles and clear to auscultation bilaterally Auscultation: Negative for rales, rhonchi or wheezes Cardio regular rate, regular rhythm, S1 normal heart sound, no murmurs, no rub and no gallops GI normal to inspection, nondistended, normoactive bowel sounds, soft to palpation, non-tender and non-distended Extremity no clubbing, cyanosis or edema Skin no rashes or lesions noted General Skin Exam: no breakdown Neuro oriented x3, CN's II-XII intact bilaterally, no focal motor deficits and no sensory deficits noted Sensorium / Orientation: awake and alert Speech: speech normal Psych affect normal Results Lab / Micro Data Result Diagrams: 12/14/21 14:53 12/14/21 14:53 Labs: Laboratory Results - last 24 hr 12/14/21 14:53: WBC 7.5, RBC 4.98, Hgb 14.9, Hct 44.3, MCV 89.0, MCH 29.9, MCHC 33.6, RDW Std Deviation 44.8 H, RDW Coeff of Tequila 13.8, Plt Count 288, MPV 10.1, Immature Gran % (Auto) 0.100, Neut % (Auto) 63.3, Lymph % (Auto) 24.4, Blaine % (Auto) 9.9, Eos % (Auto) 2.0, Baso % (Auto) 0.3, Absolute Neuts (auto) 4.7, Absolute Lymphs (auto) 1.83, Nucleated RBC % 0 12/14/21 14:53: PT 12.2, INR 1.0 12/14/21 14:53: Sodium 140, Potassium 3.5, Chloride 106, Carbon Dioxide 29.0, Anion Gap 5, BUN 21 H, Creatinine 1.03 H, Estim Creat Clear Calc 48.94, Est GFR (MDRD) Af Amer 68, Est GFR (MDRD) Non-Af 57 L, BUN/Creatinine Ratio 20.4 H, Glucose 110 H, Calcium 9.7, Troponin I High Sens 62 H Radiology Impression Chest X-Ray 12/14/21 14:38 IMPRESSION: Nonacute portable x-ray examination of the chest. Electronically Signed: Spencer Foster MD (Brooks) at 15:26 EDT Reading Location ID and State: [facility] / [place] , Service support , Assessment & Plan Assessment/Plan (1) Essential hypertension: PLAN: 1. Precordial chest discomfort-Per the patient description, it does not sound typical for angina-patient will be placed in observation status on PCU, echocardiogram will be obtained, patient will have cardiac enzymes cycled, if her cardiac enzymes remain where they are currently at, I feel the patient could have a nuclear stress test tomorrow. She can walk on a treadmill. I have attempted to discuss this with cardiology but was not able to reach them at this time, I will try later to talk with him about this case. #2 essential hypertension-patient will remain on her present blood pressure medications #3 nonocclusive coronary artery disease by history-again, enzymes will be cycled, patient will have an echocardiogram performed, and she may have an exercise nuclear stress test performed in the morning. #4 hyperlipidemia-patient is on a statin Charges/Coding Visit Charges OBSV E&M: 13997 Initial observation care L3
[2021-12-14 17:51] VITALS: BP 165/80; PULSE 70; RESP 16; TEMP 36.8; O2SAT 98
--- NOTE | 2021-12-14 17:56 | ECHOD_ITS ---
Reason For Study: Chest Pain Procedure This was a 2D Doppler, Color Flow transthoracic echocardiogram. Exam performed in department. Left Ventricle Normal LV size. The estimated ejection fraction is 70 %. Unable to assess diastolic dysfunction. No regional wall motion abnormalities noted. Right Ventricle Normal RV size. Normal systolic function. Atria The left atrium is mildly enlarged. Normal right atrium. No doppler evidence for ASD. Mitral Valve There is moderate to severe mitral annular calcification. There is no mitral valve stenosis. Trivial mitral valve insufficiency. Tricuspid Valve There is no tricuspid stenosis. Trivial tricuspid valve insufficiency. Pulmonary artery systolic pressure is 25 mmHg. Aortic Valve Trisinus/trileaflet aortic valve. There is no aortic stenosis. No aortic valve insufficiency. Pulmonic Valve There is no pulmonic valvular stenosis. No pulmonic valve insufficiency. Great Vessels Normal aortic root. Pericardium/Pleural No pericardial effusion. MMode/2D Measurements & Calculations LVIDd: 4.4 cm IVSd: 1.3 cm Ao root diam: 3.2 cm LVIDs: 3.0 cm LVPWd: 1.1 cm RVDd: 3.7 cm FS: 32.8 % LAV(MOD-bp): 78.3 ml LVAd ap4: 27.1 cm2 SV(MOD-sp4): 51.3 ml LAV(MOD-bp) Indexed: 36.4 ml/m2 LVLd ap4: 7.7 cm LAV(MOD-sp2): 89.7 ml EDV(MOD-sp4): 79.9 ml LAV(MOD-sp4): 67.1 ml EDV(sp4-el): 81.7 ml LVAs ap4: 14.1 cm2 LVLs ap4: 6.2 cm ESV(MOD-sp4): 28.6 ml ESV(sp4-el): 27.1 ml EF(MOD-sp4): 64.2 % EF(sp4-el): 66.8 % SV(sp4-el): 54.6 ml LA A4 area: 22.0 cm2 LA dimension(2D): 3.9 cm RA A4 area: 17.7 cm2 Doppler Measurements & Calculations MV E max deejay: 66.3 cm/sec Lat Peak E' Deejay: 7.2 cm/sec Med Peak E' Deejay: 4.7 cm/sec MV A max deejay: 107.8 cm/sec E/E' lat: 9.2 E/E' med: 14.1 MV E/A: 0.61 Ao V2 max: 132.1 cm/sec LV V1 max: 105.9 cm/sec PA V2 max: 116.5 cm/sec Ao max P.0 mmHg LV V1 max P.5 mmHg Ao V2 mean: 86.2 cm/sec Ao mean P.3 mmHg Ao V2 VTI: 24.8 cm TR max deejay: 220.6 cm/sec TR max P.5 mmHg ECHO/Echo Complete Interpretation Summary The estimated ejection fraction is 70 %. The left atrium is mildly enlarged. Trivial mitral valve insufficiency. Ordering Physician: Fercho Gregg Referring Physician: Arabella Godoy Performed By: Rebeca Hidalgo, FRAN, RVT
[2021-12-14 17:57] VITALS: BMI 38.3
[2021-12-14 18:05] VITALS: BP 155/86; PULSE 59; RESP 16; TEMP 36.7; O2SAT 97
[2021-12-14 19:13] LABS: Troponin-I HS 67 pg/mL (3.0-54.0)
[2021-12-14 19:16] VITALS: PULSE 62
--- NOTE | 2021-12-14 19:52 | EKG12_ITS ---
Test Reason : CP ADMIT Blood Pressure : / mmHG Vent. Rate : 054 BPM Atrial Rate : 054 BPM P-R Int : 182 ms QRS Dur : 078 ms QT Int : 426 ms P-R-T Axes : 067 -07 023 degrees QTc Int : 403 ms Sinus bradycardia Otherwise normal ECG When compared with ECG of 14-DEC-2021 14:54, MANUAL COMPARISON REQUIRED, DATA IS UNCONFIRMED Confirmed by GERALD JOHNS, MARTITA ([id number]), newspaper photo editor KORINA RUSSELL ([id number]) on 12/19/2021 8:58:51 AM Referred By: DR CORDOVA Confirmed By:MARTITA DUARTE MD
[2021-12-14 21:10] LABS: Troponin-I HS 62 pg/mL (3.0-54.0)
[2021-12-14] MEDS: Atorvastatin Calcium 20 MG Tablet PO (22:12)
[2021-12-15] VITALS (7 sets, daily range): BP systolic 134–149; BP diastolic 77–92; PULSE 53–63; RESP 16; TEMP 36.4–36.8; O2SAT 94–96
--- NOTE | 2021-12-15 05:55 | EKG12_ITS ---
Test Reason : AM EKG Blood Pressure : / mmHG Vent. Rate : 055 BPM Atrial Rate : 055 BPM P-R Int : 166 ms QRS Dur : 078 ms QT Int : 440 ms P-R-T Axes : 069 -04 024 degrees QTc Int : 420 ms Sinus bradycardia Otherwise normal ECG When compared with ECG of 14-DEC-2021 19:59, MANUAL COMPARISON REQUIRED, DATA IS UNCONFIRMED Confirmed by GERALD JOHNS, MARTITA ([id number]), medical editor KORINA RUSSELL ([id number]) on 12/19/2021 8:54:53 AM Referred By: DR CORDOVA Confirmed By:MARTITA DUARTE MD
[2021-12-15] MEDS: Lisinopril 20 MG Tablet PO (06:18)
[2021-12-15] MEDS: Aspirin E.C. 81 MG Tablet PO (06:19)
[2021-12-15] MEDS: hydroCHLOROthiazide 12.5mg 12.5 MG PO (08:56)
[2021-12-15] MEDS: Metoprolol Tartrate 25 MG Tablet PO (08:56)
[2021-12-15] MEDS: Pantoprazole Sodium 40 MG Tablet PO (08:56)
--- NOTE | 2021-12-15 11:40 | PCM.DC ---
Discharge Instructions Diet Discharge Diet: No restrictions Activity Discharge Activity: Return to Normal Activity Weight Bearing Status: Weight bearing as tolerated Dressing / Incision Call your doctor if you observe: Fever of 101 or Higher, Numbness or Tingling, Shortness of breath, Dizziness, Chest pain, Increased palpitations (irregular heartbeat) and Calf discomfort Follow Up Care Please Follow Up With: Primary care provider When: Within the next two weeks. Test Results: Test results from this visit will be discussed in further detail at your follow-up appointment, if applicable. Discharge Plan Admission Admit Date/Time: 12/14/21 16:30 Primary Reason for Your Visit: Chest pain Attending Provider: Mary Gardner Primary Care Provider: Arabella Godoy Discharge Orders/Prescriptions Prescriptions: Continued atorvastatin 20 mg tablet 20 mg PO QHS RF: 0 lisinopril-hydrochlorothiazide 20-12.5 mg tablet 1 tab PO DAILY RF: 0 calcium carbonate 600 mg calcium (1,500 mg) tablet 600 mg PO BID RF: 0 cholecalciferol (vitamin D3) 125 mcg (5,000 unit) capsule 125 mcg PO DAILY RF: 0 metoprolol tartrate 25 MG tablet 25 mg PO DAILY RF: 0 aspirin 81 MG tablet,delayed release (DR/EC) 81 mg PO DAILY RF: 0 omeprazole 40 mg capsule,delayed release(DR/EC) 40 mg PO DAILY RF: 0 coQ10 (ubiquinol) 200 mg Capsule 200 mg PO DAILY RF: 0 Referrals / Follow Up: Arabella Godoy DO [Primary Care Provider] - Within 2 Weeks Disposition Disposition (needs filled in before D/C Order can be placed): Home, Self Care
--- NOTE | 2021-12-15 13:46 | PHA.DC.MR ---
Pharmacy Service has performed discharge medication reconciliation for this patient. No new medications issued to patient at time of discharge review. Medications reviewed are from previously reported home medications. Home Medications metoprolol tartrate 25 mg PO DAILY 05/18/14 aspirin 81 mg PO DAILY 04/27/17 atorvastatin 20 mg tablet 20 mg PO QHS 03/24/21 calcium carbonate 600 mg calcium (1,500 mg) tablet 600 mg PO BID 03/24/21 cholecalciferol (vitamin D3) 125 mcg (5,000 unit) capsule 125 mcg PO DAILY 03/24/21 lisinopril 20 mg-hydrochlorothiazide 12.5 mg tablet 1 tab PO DAILY 03/24/21 coQ10 (ubiquinol) 200 mg PO DAILY 12/14/21 omeprazole 40 mg PO DAILY 12/14/21 The patient's discharge medication list was reviewed for discrepancies and discrepancies were resolved.
--- NOTE | 2021-12-15 14:13 | STRESSREP ---
Stress Test Report Date: 12/15/2021 Procedure: Exercise tolerance test/imaging study Indications: Chest pain Consent: Per the patient Procedure: The patient exercised on a Fransisco protocol for 4 minutes and 1 second achieving a peak heart rate of 137 bpm (90% predicted maximal heart rate) with a peak blood pressure 220/100 mmHg and a peak MET capacity of 7 METs. The baseline ECG demonstrated normal sinus rhythm. The peak exercise ECG demonstrated no significant ischemic changes. EKG during recovery revealed no significant ischemic changes [There were no cardiac dysrhythmias pretest, during exercise, or recovery]. The functional capacity was considered mildly decreased for age. There was [no complaint of chest discomfort during exercise or recovery]. The examination was discontinued secondary to achieving target heart rate, exaggerated blood pressure response. Impression: 1. Technically adequate (percent predicted maximal heart rate greater than 85%) exercise tolerance test 2. Stress test is negative for exercise-induced EKG changes of ischemia 3. The test test is negative for exercise-induced chest pain 4. Functional capacity is mildly decreased for age 5. Nuclear images pending Myocardial perfusion imaging study: Technique: The patient was injected with 14.7 mCi of technetium 99m Cardiolite and subsequently rest SPECT Cardiolite nuclear imaging was obtained in the horizontal long, vertical long, and short axis views. The patient exercised on a Fransisco protocol. Please see above for details. The patient was injected with 44.8 mCi of technetium 99m Cardiolite and subsequently stress SPECT Cardiolite nuclear imaging was obtained in the horizontal long, vertical long, and short axis views. A gated Cardiolite study at peak stress was obtained. Interpretation: Rest and stress SPECT Cardiolite nuclear imaging status post realignment, normalization, and attenuation correction, demonstrates overall normal myocardial radioisotope uptake. The gated Cardiolite study demonstrates no significant regional wall motion abnormalities. The reported LVEF is greater than 70%. Impression: 1. There is no evidence of significant ischemia or infarction. 2. The gated Cardiolite study reports an LVEF of greater than 70%. This note was generated with [employer] software. It may contain incorrect words, spelling, and punctuation that were not noted in checking the note before signing.
--- NOTE | 2021-12-15 14:34 | PCM.DC.SUM ---
Documented by User: Devin CASTRO 12/15/21 14:36 Providers Date of Admission: 12/14/21 Date of Discharge: 12/15/21 Primary Care Physician: Dr. Arabella Godoy DO Reason For Visit: CHEST PAIN Diagnosis Discharge Diagnosis (1) Essential hypertension: Status: Chronic Code(s): I10 - Essential (primary) hypertension Medications at Discharge Home Medications metoprolol tartrate 25 mg PO DAILY 05/18/14 aspirin 81 mg PO DAILY 04/27/17 atorvastatin 20 mg tablet 20 mg PO QHS 03/24/21 calcium carbonate 600 mg calcium (1,500 mg) tablet 600 mg PO BID 03/24/21 cholecalciferol (vitamin D3) 125 mcg (5,000 unit) capsule 125 mcg PO DAILY 03/24/21 lisinopril 20 mg-hydrochlorothiazide 12.5 mg tablet 1 tab PO DAILY 03/24/21 coQ10 (ubiquinol) 200 mg PO DAILY 12/14/21 omeprazole 40 mg PO DAILY 12/14/21 Hospital Course Procedures Nuclear stress test Summary of Care Provided Minutes Spent on Discharge: 20 Hospital Course: Patient is a 66-year-old female who was admitted to [facility] on 12/14/2021 for evaluation and management of chest pain. Stress test was obtained and did not demonstrate any evidence of significant ischemia or infarct, EF was estimated to be greater than 70%. On day of discharge patient reported that her chest pain had resolved and denied development of any new symptoms. All patient's home occasions were continued and patient is to follow-up with her primary care provider within the next 2 weeks. Patient seen by Devin Nesbitt PA-C, under the supervision of Dr. Gardner. Time spent on patient care: 20 minutes. Physical Exam Narrative Patient is a 66-year-old female comfortably resting in bed, alert and orient x3. Patient reports that her chest pain has improved from admission, denies any development of shortness of breath or palpitations. Does not appear in acute distress. Const alert, oriented x3 and no apparent distress Eyes PERRL and conjunctivae normal Neck no lymphadenopathy, supple and no JVD Resp normal respiratory effort, no retractions and no use of accessory muscles Cardio regular rhythm and no JVD Rate: bradycardia GI normal to inspection, nondistended, normoactive bowel sounds Extremity normal to inspection Skin no rashes or lesions noted Neuro CN's II-XII intact bilaterally Psych affect normal Weight / BMI Weight Weight: 237 lb 7.005 oz Body Mass Index (BMI) 38.3 ABG / Lab / Microbiology Data Result Diagrams: 12/14/21 14:53 12/14/21 14:53 Laboratory: Laboratory Results - last 24 hr 12/14/21 14:53: WBC 7.5, RBC 4.98, Hgb 14.9, Hct 44.3, MCV 89.0, MCH 29.9, MCHC 33.6, RDW Std Deviation 44.8 H, RDW Coeff of [place] 13.8, Plt Count 288, MPV 10.1, Immature Gran % (Auto) 0.100, Neut % (Auto) 63.3, Lymph % (Auto) 24.4, [place] % (Auto) 9.9, Eos % (Auto) 2.0, Baso % (Auto) 0.3, Absolute Neuts (auto) 4.7, Absolute Lymphs (auto) 1.83, Nucleated RBC % 0 12/14/21 14:53: PT 12.2, INR 1.0 12/14/21 14:53: Sodium 140, Potassium 3.5, Chloride 106, Carbon Dioxide 29.0, Anion Gap 5, BUN 21 H, Creatinine 1.03 H, Estim Creat Clear Calc 48.94, Est GFR (MDRD) Af Amer 68, Est GFR (MDRD) Non-Af 57 L, BUN/Creatinine Ratio 20.4 H, Glucose 110 H, Calcium 9.7, Troponin I High Sens 62 H 12/14/21 18:26: Troponin I High Sens 67 H 12/14/21 20:35: Troponin I High Sens 62 H Radiography Diagnostic Testing: Radiology Impression Chest X-Ray 12/14/21 14:38 IMPRESSION: Nonacute portable x-ray examination of the chest. Electronically Signed: Spencer Foster MD (Bro[place]) at 15:26 EDT , D/C Instructions Discharge Diet: No restrictions Weight Bearing Status: Weight bearing as tolerated Call your doctor if you observe: Fever of 101 or Higher, Numbness or Tingling, Shortness of breath, Dizziness, Chest pain, Increased palpitations (irregular heartbeat) and Calf discomfort Please Follow Up With: Primary care provider When: Within the next two weeks. Meaningful Use Info Meaningful Use Diagnoses (Choose all that apply): None applicable Discharge Plan Admission Admit Date/Time: 12/14/21 16:30 Primary Reason for Your Visit: Chest pain Attending Provider: Mary Gardner Primary Care Provider: Arabella Godoy Discharge Orders/Prescriptions Prescriptions: Continued atorvastatin 20 mg tablet 20 mg PO QHS RF: 0 lisinopril-hydrochlorothiazide 20-12.5 mg tablet 1 tab PO DAILY RF: 0 calcium carbonate 600 mg calcium (1,500 mg) tablet 600 mg PO BID RF: 0 cholecalciferol (vitamin D3) 125 mcg (5,000 unit) capsule 125 mcg PO DAILY RF: 0 metoprolol tartrate 25 MG tablet 25 mg PO DAILY RF: 0 aspirin 81 MG tablet,delayed release (DR/EC) 81 mg PO DAILY RF: 0 omeprazole 40 mg capsule,delayed release(DR/EC) 40 mg PO DAILY RF: 0 coQ10 (ubiquinol) 200 mg Capsule 200 mg PO DAILY RF: 0 Referrals / Follow Up: Arabella Godoy DO [Primary Care Provider] - Within 2 Weeks Disposition Disposition (needs filled in before D/C Order can be placed): Home, Self Care Documented by User: Dr. Mary Gardner MD 12/15/21 16:33 Providers Date of Admission: 12/14/21 Reason For Visit: CHEST PAIN Medications at Discharge Home Medications metoprolol tartrate 25 mg PO DAILY 05/18/14 aspirin 81 mg PO DAILY 04/27/17 atorvastatin 20 mg tablet 20 mg PO QHS 03/24/21 calcium carbonate 600 mg calcium (1,500 mg) tablet 600 mg PO BID 03/24/21 cholecalciferol (vitamin D3) 125 mcg (5,000 unit) capsule 125 mcg PO DAILY 06/25/21 lisinopril 20 mg-hydrochlorothiazide 12.5 mg tablet 1 tab PO DAILY 03/24/21 coQ10 (ubiquinol) 200 mg PO DAILY 12/14/21 omeprazole 40 mg PO DAILY 12/14/21 ABG / Lab / Microbiology Data Result Diagrams: 12/14/21 14:53 12/14/21 14:53 Discharge Plan Admission Admit Date/Time: 12/14/21 16:30 Primary Reason for Your Visit: Chest pain Attending Provider: Mary Gardner Primary Care Provider: Arabella Godoy Discharge Orders/Prescriptions Prescriptions: Continued atorvastatin 20 mg tablet 20 mg PO QHS RF: 0 lisinopril-hydrochlorothiazide 20-12.5 mg tablet 1 tab PO DAILY RF: 0 calcium carbonate 600 mg calcium (1,500 mg) tablet 600 mg PO BID RF: 0 cholecalciferol (vitamin D3) 125 mcg (5,000 unit) capsule 125 mcg PO DAILY RF: 0 metoprolol tartrate 25 MG tablet 25 mg PO DAILY RF: 0 aspirin 81 MG tablet,delayed release (DR/EC) 81 mg PO DAILY RF: 0 omeprazole 40 mg capsule,delayed release(DR/EC) 40 mg PO DAILY RF: 0 coQ10 (ubiquinol) 200 mg Capsule 200 mg PO DAILY RF: 0 Referrals / Follow Up: Arabella Godoy DO [Primary Care Provider] - Within 2 Weeks Disposition Disposition (needs filled in before D/C Order can be placed): Home, Self Care Charges/Coding Addendum Addendum: This patient was seen in conjunction with GLORIA Donis. I have independently interviewed and examined the patient and reviewed pertinent historical, laboratory, and other data. Please refer to GLORIA Donis's note for his patient's presentation, findings, and recommendations. I have reviewed and his note and concur with his documentation 66y/o with CAD, Hypertension, Hyperlipidemia Who comes in with complaints of intermittent chest pain described as tightness that radiates to her left shoulder. Patient's admitting EKG showed no acute ST-T changes, normal sinus rhythm. Troponin were unremarkable. Patient underwent nuclear stress test which was unremarkable. There were no acute events during her hospital stay. On the day of discharge, patient was seen and examined. Denied any new complaints Physical Exam: Gen: Comfortable, not pale, not jaundiced, obese CVS:HS I +II, regular, no murmurs RESP: Diminished at lung bases GI: BS present and normal, soft, nontender, no palpable organs EXT:No edema Visit Charges OBSV E&M: 45825 Observation care discharge
== END 2021-12-15 11:41 | disposition home or self-care (01) ==
LOC: ED 16:04 → PCU 16:35
PROVIDERS: Admitting Provider Internal Medicine; Emergency Provider Physician Assistant; PCP Internal Medicine; Visit Provider Internal Medicine
DX: R07.89 Other chest pain (principal); I25.10 Atherosclerotic heart disease of native coronary artery without angina pectoris; I10 Essential (primary) hypertension; E78.2 Mixed hyperlipidemia; K21.9 Gastro-esophageal reflux disease without esophagitis; Z79.82 Long term (current) use of aspirin; Z79.899 Other long term (current) drug therapy; R73.03 Prediabetes
CPT/HCPCS: 36415; 71045; 78452; 80048; 80053; 84484; 85025; 85610; 93005; 93017; 93306; 99218; 99284; A9500; A4216; G0378

== ENCOUNTER 2022-03-10 16:26 | Emergency (ER) | payer MEDICARE, SELFPAY ==
[2022-03-10 16:27] VITALS: BP 124/77; PULSE 58; RESP 15; TEMP 36.6; O2SAT 99; BMI 37.1
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
== END 2022-03-10 19:08 | disposition home or self-care (01) ==
PROVIDERS: Emergency Provider Emergency Medicine; PCP Internal Medicine; Visit Provider Emergency Medicine
DX: S93.401A Sprain of unspecified ligament of right ankle, initial encounter (principal); I25.10 Atherosclerotic heart disease of native coronary artery without angina pectoris; Z79.82 Long term (current) use of aspirin; V19.3XXA Pedal cyclist (driver) (passenger) injured in unspecified nontraffic accident, initial encounter
CPT/HCPCS: 73610; 99283

== ENCOUNTER → 2022-09-13 | Outpatient (CLI) | payer MEDICARE, SELFPAY ==
--- NOTE | 2022-09-13 08:16 | BI_ITS ---
MAMMOGRAPHY - BILATERAL SCREENING REASON FOR EXAM: Female, 67 years old. Routine annual screening examination. PERTINENT HISTORY: Non-contributory. TECHNIQUE: Digital bilateral breast libra (3D mammographic acquisition) in the CC and MLO projections. 2-D mediolateral oblique (MLO) and craniocaudad (CC) views of both breasts were obtained. CAD: Full Field Digital Mammography with Computer Added Detection was performed. COMPARISON: Comparison is made with prior study 05/04/2021 and 04/04/2020. FINDINGS: Breast Composition: There are scattered areas of fibroglandular density. There are no dominant masses or suspicious calcifications. No other significant abnormalities are identified. There has been no significant change since the prior study. BI/SCRN MAMM (CAD)W/LIBAR BILAT IMPRESSION: Stable bilateral screening mammogram. Yearly follow-up mammogram recommended. (A) ASSESSMENT CATEGORY: BIRADS Category 1: Negative. A letter regarding these results will be sent to the patient by the facility within 30 days. Approximately 10% of breast cancers are not detected by mammography. A normal mammogram should not delay biopsy of a clinically suspicious abnormality. [id number] Electronically Signed: Lee Gomez MD at 10:37 EST ,
== END | disposition home or self-care (01) ==
LOC: OPBI 08:15
PROVIDERS: PCP Internal Medicine; Visit Provider Internal Medicine
DX: Z12.31 Encounter for screening mammogram for malignant neoplasm of breast (principal)
CPT/HCPCS: 77063; 77067

== ENCOUNTER → 2022-11-29 | Outpatient (CLI) | payer MEDICARE, SELFPAY ==
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
== END | disposition home or self-care (01) ==
PROVIDERS: PCP Internal Medicine; Referring Provider Podiatrist; Visit Provider Podiatrist
DX: S93.401S Sprain of unspecified ligament of right ankle, sequela (principal)
CPT/HCPCS: 73721

== ENCOUNTER → 2023-11-22 | Outpatient (CLI) | payer MEDICARE, SELFPAY ==
--- NOTE | 2023-11-22 10:12 | BD_ITS ---
STUDY: DUAL ENERGY X-RAY ABSORPTIOMETRY / DXA REASON FOR EXAM: Female, 68 years old. 627.8Menopausal postmenopausalBONE DENSITY REASON FOR EXAM TECHNIQUE: Bone Mineral Density (BMD) measurements of lumbar spine and bilateral hips were obtained. COMPARISON: Comparison is made with prior study dated May 04, 2021. FINDINGS: Lumbar Spine (L1-L4): g/cm2 (0.825) / T-score (-2.5) / Z-score (-0.2) Findings are suggestive of osteoporosis with a high fracture risk. Left Femur Total: g/cm2 (0.844) / T-score (-0.8) / Z-score (0.7) Left Femoral Neck: g/cm2 (0.753) / T-score (-0.9) / Z-score (1.0) Right Femur Total: g/cm2 (0.749) / T-score (-1.6) / Z-score (-0.1) Right Femoral Neck: g/cm2 (0.670) / T-score (-1.6) / Z-score (0.2) The T-Scores on the most recent prior examination were: Lumbar Spine (L1-L4): There has been improvement of bone density since the previous examination. Left Femur Total: which represents a worsening of 0.4%. Right Femur Total: which represents a worsening of 7.2%. BD/Dexa Bone Density Study IMPRESSION: The patient is considered osteoporotic as outlined below according to World [employer] Organization (WHO) criteria with a high fracture risk. There has been worsening of bone density since the previous examination. Reference Information: The T-score is the number of standard deviations above or below the standard which is normal for young adults at their peak bone mineral density. The World Health Organization (WHO) interprets the T-scores as follows: Above -1 Normal bone density Between -1 and -2.5 Osteopenia Equal to / or below -2.5 Osteoporosis As a practical clinical guideline, osteopenia may be graded as follows: Mild -1 through -1.5 Moderate -1.6 through -2.0 Severe -2.1 through -2.4 The Z-score is the number of standard deviations above or below age-matched controls. A Z-score of less than -1.5 would be considered abnormal. References: 1. NIH Osteoporosis and Related Bone Diseases www osteo.org 2. International Society for Clinical Densitometry www iscd.org 3. National Osteoporosis Foundation www nof.org Electronically Signed: Lee Gomez MD at 8:33 EST ,
--- NOTE | 2023-11-22 10:12 | BI_ITS ---
MAMMOGRAPHY - BILATERAL SCREENING REASON FOR EXAM: Female, 68 years old. Routine annual screening examination. PERTINENT HISTORY: Non-contributory. TECHNIQUE: Digital bilateral breast libra (3D mammographic acquisition) in the CC and MLO projections. 2-D mediolateral oblique (MLO) and craniocaudad (CC) views of both breasts were obtained. CAD: Full Field Digital Mammography with Computer Added Detection was performed. COMPARISON: Comparison is made with prior study dated September 13, 2022 and May 04, 2021. FINDINGS: Breast Composition: There are scattered areas of fibroglandular density. There are no dominant masses or suspicious calcifications. Stable small benign-appearing bilateral axillary lymph nodes. No other significant abnormalities are identified. There has been no significant change since the prior study. BI/SCRN MAMM (CAD)W/LIBRA BILAT IMPRESSION: Stable bilateral screening mammogram. Yearly follow-up mammogram recommended. (A) ASSESSMENT CATEGORY: BIRADS Category 2: Benign. A letter regarding these results will be sent to the patient by the facility within 30 days. Approximately 10% of breast cancers are not detected by mammography. A normal mammogram should not delay biopsy of a clinically suspicious abnormality. [id number] Electronically Signed: Lee Gomez MD at 11:04 EST ,
== END | disposition home or self-care (01) ==
LOC: OPBD 10:09
PROVIDERS: PCP Internal Medicine; Referring Provider Internal Medicine; Visit Provider Internal Medicine
DX: Z12.31 Encounter for screening mammogram for malignant neoplasm of breast (principal); Z78.0 Asymptomatic menopausal state
CPT/HCPCS: 77063; 77067; 77080

== ENCOUNTER → 2024-11-23 | Outpatient (CLI) | payer MEDICARE, SELFPAY ==
--- NOTE | 2024-11-23 10:16 | BI_ITS ---
PROCEDURE: SCRN MAMM (CAD)W/LIBRA BILAT REASON FOR EXAM: F, Age 69 y/o, routine annual mammogram. No family history. TECHNIQUE: Bilateral screening digital breast tomosynthesis with 2D and 3D images. Computer aided detection. COMPARISON: Prior exam(s) dating back to November 22, 2023.. FINDINGS: There are scattered areas of fibroglandular density. Stable small benign- appearing bilateral axillary lymph nodes. No suspicious masses, areas of developing architectural distortion, or suspicious calcifications. BI/SCRN MAMM (CAD)W/LIBRA BILAT IMPRESSION: BI-RADS 2: BENIGN. RECOMMEND ANNUAL MAMMOGRAPHIC SCREENING. Follow-up code: Routine Follow-up The patient will be notified of the results by letter. Reading Location: [id number]
== END | disposition home or self-care (01) ==
LOC: OPBI 10:15
PROVIDERS: PCP Internal Medicine; Referring Provider Internal Medicine; Visit Provider Internal Medicine
DX: Z12.31 Encounter for screening mammogram for malignant neoplasm of breast (principal)
CPT/HCPCS: 77063; 77067